=== PATIENT | male | born 1945 ===

== ENCOUNTER → 2018-08-23 18:58 | Outpatient (REF) | payer MEDICARE, SELFPAY ==
[2018-08-23 19:40] LABS: Sodium 128 mmol/L (137-145)
== END ==
LOC: LAB 18:58
PROVIDERS: Visit Provider Family Medicine
DX: E87.1 Hypo-osmolality and hyponatremia (principal)
CPT/HCPCS: 84295

== ENCOUNTER → 2018-09-04 18:50 | Outpatient (REF) | payer MEDICARE, SELFPAY ==
[2018-09-04 19:26] LABS: Sodium 135 mmol/L (137-145)
== END ==
LOC: LAB 18:50
PROVIDERS: Visit Provider Family Medicine
DX: E87.1 Hypo-osmolality and hyponatremia (principal)
CPT/HCPCS: 36415; 84295

== ENCOUNTER → 2019-01-23 13:37 | Outpatient (REF) | payer MEDICARE, SELFPAY ==
[2019-01-23 14:42] LABS: Add Manual Diff / Slide Review NO; Basophils Absolute Auto 100 /uL (0-100); Basophils Percent Auto 0.9 % (0-2); Eosinophils Absolute Auto 100 /uL (0-450); Eosinophils Percent Auto 2.5 % (2-4); Hematocrit 41.9 % (41-53); Hemoglobin 14.2 g/dL (13.5-17.5); Lymphocytes Absolute Auto 1800 /uL (1100-4500); Lymphocytes Percent Auto 30.9 % (25-40); Mean Corpuscular HGB Conc 33.8 % (30-36); Mean Corpuscular Volume 91.5 fL (80-100); Monocytes Absolute Auto 700 /uL (0-900); Monocytes Percent Auto 12.8 % (3-14); Neutrophils Absolute Auto 3000 /uL (1500-7000); Neutrophils Percent Auto 52.9 % (50-75); Platelet Count 348 X10^3/uL (150-400); Red Blood Cell Count 4.58 X10^6/uL (4.5-5.9); Red Cell Distribution Width 14.7 % (11.6-14.8); White Blood Cell Count 5.7 X10^3/uL (4.5-11.0)
[2019-01-23 15:41] LABS: Alanine Aminotransferase 60 IU/L (21-72); Albumin 4.3 g/dL (3.5-5.0); Alkaline Phosphatase 162 U/L (38-126); Aspartate Aminotransferase 48 IU/L (17-59); BUN Creatinine Ratio 21.4 (6-22); Bilirubin Total 0.7 mg/dL (0.2-1.3); Blood Urea Nitrogen 15 mg/dL (9-20); Calcium 9.8 mg/dL (8.4-10.2); Carbon Dioxide 25 mmol/L (22-32); Chloride 92 mmol/L (98-107); Estimated Glomerular Filt Rate > 60.0 mL/min (>60); Globulin 2.1 g/dL (1.7-4.1); Glucose 93 mg/dL (80-110); HEMOLYSIS < 15 (0-50); Sodium 128 mmol/L (137-145); Total Protein 6.4 g/dL (6.3-8.2)
[2019-01-23 15:45] LABS: Potassium 5.5 mmol/L (3.4-5.1)
[2019-01-23 16:11] LABS: Thyroid Stimulating Hormone 3.34 uIU/mL (0.47-4.68)
[2019-01-23 16:42] LABS: Folate 6.4 ng/mL (2.76-20.0); Vitamin B12 402 pg/mL (239-931)
== END ==
LOC: LAB 13:37
PROVIDERS: Visit Provider Family Medicine
DX: R07.9 Chest pain, unspecified (principal); Z13.228 Encounter for screening for other metabolic disorders; Z13.1 Encounter for screening for diabetes mellitus; D64.9 Anemia, unspecified
CPT/HCPCS: 36415; 80053; 82607; 82746; 84443; 85025

== ENCOUNTER → 2019-01-29 20:23 | Outpatient (REF) | payer MEDICARE, SELFPAY ==
[2019-01-29 22:17] LABS: BUN Creatinine Ratio 11.4 (6-22); Blood Urea Nitrogen 8 mg/dL (9-20); Calcium 9.8 mg/dL (8.4-10.2); Carbon Dioxide 25 mmol/L (22-32); Chloride 95 mmol/L (98-107); Estimated Glomerular Filt Rate > 60.0 mL/min (>60); Glucose 96 mg/dL (80-110); HEMOLYSIS < 15 (0-50); Potassium 4.6 mmol/L (3.4-5.1); Sodium 131 mmol/L (137-145)
== END ==
LOC: LAB 20:23
PROVIDERS: Visit Provider Family Medicine
DX: R89.9 Unspecified abnormal finding in specimens from other organs, systems and tissues (principal)
CPT/HCPCS: 36415; 80048

== ENCOUNTER → 2019-02-05 20:42 | Outpatient (REF) | payer MEDICARE, SELFPAY ==
[2019-02-06 01:17] LABS: Sodium 130 mmol/L (137-145)
== END ==
LOC: LAB 20:42
PROVIDERS: Visit Provider Family Medicine
DX: E87.1 Hypo-osmolality and hyponatremia (principal)
CPT/HCPCS: 36415; 84295

== ENCOUNTER → 2019-02-14 14:37 | Outpatient (REF) | payer MEDICARE, SELFPAY ==
[2019-02-14 15:50] LABS: Sodium 135 mmol/L (137-145)
== END ==
LOC: LAB 14:37
PROVIDERS: Visit Provider Family Medicine
DX: E87.1 Hypo-osmolality and hyponatremia (principal)
CPT/HCPCS: 36415; 84295